=== PATIENT | female | born 1950 | race Caucasian/White ===

== ENCOUNTER → 2023-12-13 | Day surgery (SDC) | payer OTHER ==
--- NOTE | 2023-12-13 13:28 | RAD REPORT ---
EXAM DESCRIPTION: Ultrasound-guided left breast core biopsy CLINICAL HISTORY: R92.8, N63.0 COMPARISON: BREAST/AXILLA, LIMITED dated 11/20/2015 FINDINGS: Informed consent was obtained following discussion of the risks and benefits with the melinda ent, and time-out was performed. The patient's left breast was prepped and draped in the usual sterile fashion. 1% lidocaine was used for local anesthetic purposes. Under real-time ultrasound guidance, the suspicious taller than wide hypoechoic mass at the 7 o'clock position was demonstrated. Utilizing aseptic technique and ultrasound guidance, a 12 gauge vacuum as sisted core biopsy device was used to obtain 3 core specimens through the mass of interest. A post bi opsy clip was then placed. All collected material was sent for cytology. Patient tolerated procedure well. IMPRESSION: Successful ultrasound guided vacuum assisted left breast mass biopsy.
== END ==
LOC: DS 09:45
PROVIDERS: ATTEND Family Medicine
DX: C50.512 Malignant neoplasm of lower-outer quadrant of left female breast (principal); Z17.0 Estrogen receptor positive status [ER+]
CPT/HCPCS: 19083; 88305

== ENCOUNTER 2024-01-26 05:49 | Day surgery (SDC) | payer OTHER ==
[2024-01-24 14:46] LABS: Absolute Eosinophils 0.1 K/uL (0-0.5); Absolute Lymphocytes (CBC) 2.5 K/uL (0.7-4.9); Absolute Monocytes 0.5 K/uL (0.1-1.3); Absolute Neutrophil 4.6 K/uL (1.8-8.0); Basophils % 0.4 % (0-1.3); Eosinophils % 1.3 % (0-4.4); Hematocrit 38.3 % (36.0-45.0); Lymphocytes % 32.2 % (15.3-44.8); MCH 33.2 pg (27.0-35.0); MCV 97.6 fL (80-100); MPV 6.9 fL (7.6-11.3); Monocytes % 6.4 % (3.3-12.3); Neutrophils % 59.7 % (41.7-73.7); Platelets 256 thou/uL (152-406); RBC Red Blood Cell Count 3.93 M/uL (3.86-4.86); Red Cell Distribution Width 13.1 % (12.1-15.2)
[2024-01-24 15:04] LABS: Anion Gap 13.5 mEq/L (5.0-15.0); Potassium 3.5 mEq/L (3.5-5.1)
--- NOTE | 2024-01-24 15:04 | RAD REPORT ---
EXAM DESCRIPTION: Samina Ferraro (2 Views)01/24/2024 2:51 pm CLINICAL HISTORY: Preop for breast surgery COMPARISON: None FINDINGS: The lungs appear clear of acute infiltrate. The heart is normal size IMPRESSION: No acute abnormalities displayed
--- NOTE | 2024-01-25 16:23 | EKG ---
Test Date: 2024-01-24 Test Time: 14:35:52 Superintendent Maintenance: GUILLERMO MEASUREMENT RESULTS: Intervals: Rate: 55 IL: 162 QRSD: 80 QT: 406 QTc: 388 [place]: P: 65 IL: 162 QRS: 49 T: 64 INTERPRETIVE STATEMENTS: Sinus bradycardia with sinus arrhythmia Otherwise normal ECG No previous ECG available for comparison Electronically Signed On 01-25-24 16:21:30 CDT by Alexis Hudson
[2024-01-26] MEDS ORDERED: Ringers Lactate 1,000 ML IV ONE (06:02)
[2024-01-26] MEDS ORDERED: CEFAZOLIN SODIUM 1 GM/VIAL ONE (06:02)
[2024-01-26] MEDS ORDERED: dexAMETHasone 4 MG/ML VIAL ONE (07:43)
[2024-01-26] MEDS ORDERED: KETOROLAC 30 MG/ML INJ ONE ×2 (07:43→09:43)
[2024-01-26] MEDS ORDERED: FENTANYL CITR 100 MCG/2 ML ONE (07:43)
[2024-01-26] MEDS ORDERED: propofoL 200 MG/20 ML VIAL IV ONE (07:43)
[2024-01-26] MEDS ORDERED: MIDAZOLAM HCL 2 MG/2 ML INJ ONE (07:43)
[2024-01-26] MEDS ORDERED: ONDANSETRON 4 MG/2 ML VIAL ONE (07:43)
[2024-01-26] MEDS ORDERED: ROCURONIUM 50 MG/5 ML VIAL IV ONE (07:43)
[2024-01-26] MEDS ORDERED: LIDOCAINE 1% MPF 5 ML VIAL ONE (07:43)
[2024-01-26] MEDS ORDERED: METHYLENE BLUE 1% 10 ML VIAL ONE (08:25)
--- NOTE | 2024-01-26 08:54 | RAD REPORT ---
EXAM DESCRIPTION: US - Brst,Preop NL Wire Init w/Guid - 01/26/2024 8:02 am CLINICAL HISTORY: Left breast cancer FINDINGS: The skin, subcutaneous tissues and breast tissue were anesthetized with lidocaine. Under sonographic guidance a Kopan's hook wire was placed into the mass within inner left breast. The patient then left for the surgical department IMPRESSION: Ultrasound-guided needle wire localization of a left breast mass
--- NOTE | 2024-01-26 08:55 | RAD REPORT ---
EXAM DESCRIPTION: NM - Lymphoscintigraphy - 01/26/2024 7:15 am CLINICAL HISTORY: Left breast cancer TECHNIQUE: 125 microcuries Lymphoseek administered into the medial subcutaneous tissue periareolar r egion of the breast. An additional 125 microcuries Lymphoseek administered into the lateral subcutane ous tissues periareolar region of the breast Subsequently a scintigram was obtained which demonstrated the radiotracer within these locations. IMPRESSION: Left breast lymphoscintigram
[2024-01-26] MEDS ORDERED: EPHEDRINE SULF 50 MG/ML VIAL ONE (08:57)
[2024-01-26] MEDS ORDERED: Mastisol Adhesive Liq ONE (09:13)
--- NOTE | 2024-01-26 09:53 | P.OP ---
Date of Service: 01/26/24 Preop diagnosis: Left breast cancer Postop diagnosis: Same Procedure performed: Needle localization and left breast lumpectomy, sentinel node biopsy Surgeon: Jared Perez MD Drafter Electronic: None Estimated blood loss: Minimal Specimen: [place] node negative for metastatic disease, margins free of cancer Findings: As above Anesthesia: General Complications: None Drains: None Fluids and blood products: Nonapplicable Disposition: Recovery room Operative note: Patient brought to the OR and placed in supine position. General anesthesia began. Then under sterile condition methylene blue injected around the nipple areolar complex. Breast massaged. Then patient prepped and draped in usual sterile fashion. Counting device used to identify the sentinel node in the left axilla. 3 cm incision made over the highest number. Subcutaneous tissue divided. Deep to the subcutaneous tissue a blue lymph node and a adjacent enlarged lymph node identified and excised. Frozen section revealed no evidence of metastatic disease. Wound irrigated and bleeding controlled cautery. 3-0 chromic used to approximate subcutaneous tissue and close skin. There was a discussion with the radiologist regarding the needle localization and the orientation of the breast and the cancer. There is a area of further concern on seen on the MRI which was included in the markings for the lumpectomy. 15 blade was used to make approximately an 8 x 2 cm ellipse of skin incision around the needle. Subcutaneous tissue divided and breast tissue via flaps that were created was dissected down to the pectoralis fashion. Entire area around the tip of the needle was excised as well as the area that was of concern on the MRI. Specimen was sent to radiology. Confirmation was made that the specimen contained the the cancer. Margin check was performed by pathology. All margins were negative. Wound was irrigated and bleeding controlled caut sanjana. 3-0 chromic used to approximate subcutaneous tissue and close skin. Sterile dressing applied. Patient awakened and taken to recovery room in good general condition. CC: Dr. Cantrell's office
[2024-01-26] MEDS ORDERED: HYDROCODONE/APAP 7.5/325 MG TAB PO PRN (09:56)
[2024-01-26] MEDS ORDERED: PROMETHAZINE INJ 25 MG/ML AMP ONE (09:58)
[2024-01-26] MEDS: MEPERIDINE HCL 25 MG/ML SYR ONE (10:06)
[2024-01-26] MEDS ORDERED: HYDROCODONE/APAP 7.5/325 MG TAB ONE (10:59)
--- NOTE | 2024-01-26 11:33 | RAD REPORT ---
EXAM DESCRIPTION: US - Surgical Specimen - 01/26/2024 9:24 am CLINICAL HISTORY: Breast mass IMPRESSION: The mass is present within the resected breast specimen
[2024-01-26 13:30] VITALS: BP 121/52; TEMP 97.9; O2SAT 100
== END 2024-01-26 11:29 | disposition home or self-care (01) ==
LOC: OR 05:49
PROVIDERS: ATTEND Surgery
PROC: 07B60ZX Excision of Left Axillary Lymphatic, Open Approach, Diagnostic (ICD-10-PCS; 2024-01-26)
PROC: 0HBU0ZZ Excision of Left Breast, Open Approach (ICD-10-PCS; principal; 2024-01-26 08:30)
DX: C50.912 Malignant neoplasm of unspecified site of left female breast (principal); Z17.0 Estrogen receptor positive status [ER+]
CPT/HCPCS: 19301; 38525; 93005; 85025; 80048; 36415; 88329; 88307; 88333; 71046; 76098; 19285; 78195; J2550; J2704; J1100; J2001; J2250; J3010; J2175; J2405; J7120; J0690; A9520